=== PATIENT | male | born 1955 | race Caucasian/White ===

== ENCOUNTER → 2019-04-19 | Outpatient (CLI) | payer MEDICARE, OTHER ==
[~2019-04-19] MED LIST: ASPI-587 PO; AZIT-21 PO; AZTH250C PO; CLOP75TA PO; CTLP20T PO; ENLP10T PO; FOLI1TAB24 PO; GUAI10SY4 PO; OMG1KC PO; WARF6TAB PO; WRF1T PO; WRF5T PO
--- NOTE | 2019-04-19 10:15 | Diagnostic Imaging Report ---
INDICATION: LEFT MEDIAL ANKLE HURTING FOR 1 YEAR AND GETTING WORSE COMPARISON: None. FINDINGS: Three views of the left ankle were obtained. There is no acute fracture or dislocation. No focal osseous lesions are seen. The surrounding soft tissue structures are unremarkable. There are no radiopaque foreign bodies. Note is made of calcified arterial sclerosis. IMPRESSION: 1. No acute fracture or dislocation in the left ankle. Dictated by: Dictated on workstation # [id number]
== END ==
LOC: RAD 09:03
PROVIDERS: ATTEND Family Medicine
DX: M25.572 Pain in left ankle and joints of left foot (principal)
CPT/HCPCS: 73610

== ENCOUNTER → 2019-07-21 | Outpatient (CLI) | payer MEDICARE, OTHER | LOC: CARD 08:12 | PROVIDERS: ATTEND Physician Assistant | DX: I25.10 Atherosclerotic heart disease of native coronary artery without angina pectoris (principal); I63.9 Cerebral infarction, unspecified; I10 Essential (primary) hypertension; E78.5 Hyperlipidemia, unspecified; I48.0 Paroxysmal atrial fibrillation | CPT/HCPCS: 93306 ==

== ENCOUNTER → 2019-07-24 | Outpatient (CLI) | payer MEDICARE, OTHER ==
[~2019-07-24] VITALS: Ht 189 cm; Wt 103.0 kg
[~2019-07-24] MED LIST changes: +CATHETER FLUSH 10 ML SYR IV PRN; +REGADENOSON 0.4 MG/5 ML SYR (LEXISCAN) IV ONE
[2019-07-24 09:46] VITALS: BP 124/88
--- NOTE | 2019-07-24 09:55 | NUR ---
PATIENT BEING CONTINUALLY MONITORED DUE TO INCREASING CHEST PAIN DURING STRESS TEST. PATIENT GIVEN 3 SUBLINGAL NITRO POST PROCEDURE PER HEIDY ORDERS. PATIENT MONITORED ON STRESS MACHINE. DR. TAVERAS AT BEDSIDE AT THIS TIME.
[2019-07-24 09:59] VITALS: BP 125/98
--- NOTE | 2019-07-24 09:59 | NUR ---
PREVIOUS NOTE: WRONG PATIENT, DISREGARD.
--- NOTE | 2019-07-24 11:19 | NUR ---
LEXISCAN ORDERED ON WRONG PATIENT CHART. ORDER REJECTED ON EMAR.
--- NOTE | 2019-07-24 12:19 | Cardiology Stress Test Report ---
Stress Test Report Date of Procedure/Referring: Date of Procedure: Jul 24, 2019 PCP Yvette Kurtz Admitting Physician Lenin Mahmood DO Indications: CAD Baseline Heart Rate: 72 Baseline Blood Pressure: Blood Pressure Systolic: 125 Blood Pressure Diastolic: 98 Baseline EKG: Baseline EKG: normal sinus rhythm Summary: Patient exercised on standard Kwaku protocol, EKG, heart rate and blood pressure were monitored continuously, resting and stress doses of radio tracer were injected, imaging was acquired and reviewed in the short axis, horizontal long axis and vertical long axis views TID 0.98 SSS 3 SDS 1 EF 59% Conclusion: 1. Good exercise tolerance for 7 minutes 30 seconds on standard Kwaku protocol, 9.1 METs achieving 90 percent of maximum expected heart rate 2. Nondiagnostic EKG changes with upsloping [address] depression in leads 2, 3, aVF. Return to baseline during recovery 3. Hypertensive response to exercise with peak blood pressure 209/49 return to baseline during recovery 4. Diaphragmatic attenuation with no significant ischemia or infarction on SPECT images 5. Normal left ventricular size and contractility, EF 59 percent BETO TAVERAS MD Jul 24, 2019 12:19
== END ==
LOC: CARD 07:50
PROVIDERS: ATTEND Physician Assistant
DX: I25.10 Atherosclerotic heart disease of native coronary artery without angina pectoris (principal); I63.9 Cerebral infarction, unspecified; I10 Essential (primary) hypertension; E78.2 Mixed hyperlipidemia; I48.0 Paroxysmal atrial fibrillation; J98.6 Disorders of diaphragm
CPT/HCPCS: 78452; 93017; A9502

== ENCOUNTER → 2021-05-01 | Outpatient (CLI) | payer MEDICARE, OTHER ==
[~2021-05-01] MED LIST changes: +IOHEXOL 350 MG/ML 100 ML (OMNIPAQUE 350) VIAL IV ONE; +NS 100 ML (IVPB) BAG IV ONE; -REGADENOSON 0.4 MG/5 ML SYR (LEXISCAN) IV ONE
--- NOTE | 2021-05-01 10:06 | Diagnostic Imaging Report ---
PROCEDURE: CT head with and without contrast. TECHNIQUE: Multiple contiguous axial images were obtained through the brain before and after the administration of intravenous contrast. Auto Exposure Controls were utilized during the CT exam to meet ALARA standards for radiation dose reduction. INDICATION: Old stroke, now with dizziness of 3 days duration. COMPARISON: Head CT 12/13/2010. FINDINGS: The cerebral cortical volume is unremarkable for age. No hydrocephalus. After contrast was administered, there was no abnormal or suspicious parenchymal or meningeal enhancement. No evidence for mass. No findings of focal or generalized cerebral edema. No evidence for an elevation of the intracranial pressures. There is no hemorrhage. There are no abnormal extra-axial fluid collections. There is normal enhancement of the major dural venous sinuses. The orbits, calvarium, and paranasal sinuses as well as mastoid air cells are unremarkable. IMPRESSION: No hemorrhage, edema, mass, or acute/suspicious abnormalities. Dictated by: Dictated on workstation # [id number]
== END ==
LOC: RAD 08:45
PROVIDERS: ATTEND Family Medicine
DX: R42 Dizziness and giddiness (principal); Z86.73 Personal history of transient ischemic attack (TIA), and cerebral infarction without residual deficits
CPT/HCPCS: 70470

== ENCOUNTER 2021-10-06 08:35 | Emergency (ER) | payer MEDICARE, OTHER ==
[~2021-10-06] VITALS: Ht 188 cm; Wt 98.0 kg
[~2021-10-06 08:35] MED LIST changes: -CATHETER FLUSH 10 ML SYR IV PRN; -IOHEXOL 350 MG/ML 100 ML (OMNIPAQUE 350) VIAL IV ONE; -NS 100 ML (IVPB) BAG IV ONE
--- NOTE | 2021-10-06 08:50 | ED General ---
General Stated Complaint: FREQ URINATION,SWEATS, Source of Information: Patient Exam Limitations: No Limitations History of Present Illness Date Seen by Provider: Oct 06, 2021 Time Seen by Provider: 08:48 Initial Comments 66-year-old male presents to the emergency department today for increased urinary frequency. Symptoms for about a week and progressive. Last night he was concerned because he had chills and fevers he likely had fevers overnight. No dysuria or hematuria. No abdominal pain. No nausea or vomiting. No sick contacts. Allergies and Home Medications Allergies Coded Allergies: No Known Drug Allergies (Unverified , 12/13/10) Patient Home Medication List Home Medication List Reviewed: Yes Aspirin (Aspir 81) 81 Mg Tablet.dr, 81 MG PO DAILY, (Reported) Entered as Reported by: JOSE LINDSEY on 03/14/132008 Enalapril Maleate (Vasotec) 10 Mg Tablet, 1 TAB PO DAILY, (Reported) Entered as Reported by: KRANTHI OLIVIER on 01/01/11 1124 Folic Acid (Folic Acid) 1 Mg Tablet, 1 MG PO, (Reported) Entered as Reported by: JOSE LINDSEY on 03/14/132008 [place] 3 Polyunsat Fatty Acids (Fish Oil) 1,000 Mg Cap, 1,000 MG PO BID, (Reported) Entered as Reported by: JOSE LINDSEY on 03/14/132008 Warfarin Sod (Coumadin 5 Mg) 5 Mg Tab, 10 MG PO [id number]@18, (Reported) Entered as Reported by: CLEMENTE WALTER on 02/16/11 1152 Warfarin Sod (Coumadin 5 Mg) 5 Mg Tab, 15 MG PO MoWeFr@18, (Reported) Entered as Reported by: CLEMENTE WALTER on 02/16/11 1153 Review of Systems Review of Systems Constitutional: chills, fever EENTM: no symptoms reported Respiratory: no symptoms reported Cardiovascular: no symptoms reported Gastrointestinal: no symptoms reported Genitourinary: frequency Musculoskeletal: no symptoms reported Skin: no symptoms reported Psychiatric/Neurological: No Symptoms Reported Hematologic/Lymphatic: No Symptoms Reported Immunological/Allergic: no symptoms reported Past Geswruz-Fdudyo-Agwokx Hx Patient Social History Tobacco Use?: No Substance use?: No Seasonal Allergies Seasonal Allergies: No Past Medical History Surgeries: No Neurological: Yes Stroke Reproductive Disorders: No Abdominal Hernia Adverse Reaction/Blood Tranf: No Family Medical History Reviewed Nursing Family Hx No Pertinent Family Hx Physical Exam Vital Signs Vital Signs - First Documented 10/06/21 08:50 Temp 38.2 Pulse 92 Resp 18 B/P (MAP) 128/82 (97) Pulse Ox 96 O2 Delivery Room Air Capillary Refill : Height, Weight, BMI Height: 6'2" Weight: 230lbs. oz. 104.945150zm; 28.83 BMI Method:Stated General Appearance: No Apparent Distress, WD/WN HEENT: PERRL/EOMI, TMs Normal, Normal ENT Inspection, Pharynx Normal Neck: Normal Inspection, Non Tender, Supple Respiratory: Chest Non Tender, Lungs Clear, Normal Breath Sounds, No Accessory Muscle Use, No Respiratory Distress Cardiovascular: Regular Rate, Rhythm, No Edema, No Gallop, No JVD, No Murmur, Normal Peripheral Pulses Gastrointestinal: Normal Bowel Sounds, No Organomegaly, No Pulsatile Mass, Non Tender, Soft Extremity: Normal Capillary Refill, Normal Inspection, Normal Range of Motion, Non Tender, No Calf Tenderness Neurologic/Psychiatric: Alert, Oriented x3 Skin: Normal Color, Warm/Dry Lymphatic: No Adenopathy Progress/Results/Core Measures Suspected Sepsis SIRS Temperature: Pulse: Respiratory Rate: Blood Pressure / Mean: Results/Orders Lab Results Laboratory Tests Test 10/06/21 09:17 Range/Units Urine Color ORANGE Urine Clarity CLOUDY Urine pH 5.5 5-9 Urine Specific [place] 1.025 H 1.016-1.022 Urine Protein 1+ H NEGATIVE Urine Glucose (UA) NEGATIVE NEGATIVE Urine Ketones NEGATIVE NEGATIVE Urine Nitrite NEGATIVE NEGATIVE Urine Bilirubin NEGATIVE NEGATIVE Urine Urobilinogen 1.0 < = 1.0 MG/DL Urine Leukocyte Esterase NEGATIVE NEGATIVE Urine RBC (Auto) 1+ H NEGATIVE Urine RBC NONE /HPF Urine WBC 0-2 /HPF Urine Crystals NONE /LPF Urine Bacteria TRACE /HPF Urine Casts PRESENT /LPF Urine Coarse Granular Casts 0-2 H /LPF Urine Mucus MODERATE H /LPF Urine Culture Indicated NO My Orders Orders - MERCEDES ELLIS DO Ua Culture If Indicated (10/06/21 09:15) Vital Signs/I&O 10/06/21 08:50 Temp 38.2 Pulse 92 Resp 18 B/P (MAP) 128/82 (97) Pulse Ox 96 O2 Delivery Room Air Capillary Refill : Departure Communication (Admissions) Patient is hemodynamically stable with a very benign exam and normal vital signs. Urine shows likely slight urinary tract infection and given his symptoms this is certainly consistent. We will go and treat with antibiotics and supportive care. Advised him to follow-up with his doctor in 48 to 72 hours if symptoms persist, return to the emergency department for any severe concerns. He states understanding questions were sought and answered. Impression Primary Impression: UTI (urinary tract infection) Qualified Codes: N30.00 - Acute cystitis without hematuria Disposition: HOME, SELF-CARE Condition: Stable Departure-Patient Inst. Referrals: LISA ARZOLA DO (PCP/Family) Primary Care Physician Patient Instructions: Urinary Tract Infection, Adult (DC) Add. Discharge Instructions: You were seen in the emergency department for increased urinary frequency. You do have a mild urinary tract infection. Take the antibiotics as prescribed until they are gone. Follow-up with your primary physician in the next 48 to 72 hours should your symptoms persist. Return to the emergency department immediately if your symptoms change in any way concerning to you Scripts Ciprofloxacin (Ciprofloxacin) 500 Mg/5 Ml [facility].rec 500 MG PO TID for 7 Days, #21 TAB Prov: MERCEDES ELLIS DO 10/06/21 MERCEDES ELLIS DO Oct 06, 2021 08:50
[2021-10-06 09:20] LABS: BILIRUBIN,URINE NEGATIVE (NEGATIVE); CLARITY,URINE CLOUDY; COLOR,URINE ORANGE; GLUCOSE, URINE (UA) NEGATIVE (NEGATIVE); KETONES,URINE NEGATIVE (NEGATIVE); LEUKOCYTE ESTERASE ,URINE NEGATIVE (NEGATIVE); NITRITE,URINE NEGATIVE (NEGATIVE); PH,URINE 5.5 (5-9); PROTEIN,URINE 1+ (NEGATIVE)
[2021-10-06 09:54] LABS: BACTERIA,URINE TRACE /HPF; WBC,URINE 0-2 /HPF
[2021-10-06] MEDS ORDERED: CIPR500S3 PO (10:24)
[2021-10-06 10:58] VITALS: BP 105/68
== END 2021-10-06 10:58 | disposition home or self-care (01) ==
LOC: EDUNIT# 08:35 → ER 08:37
DX: N39.0 Urinary tract infection, site not specified (principal); Z28.310 Unvaccinated for COVID-19
CPT/HCPCS: 81000; 99282